=== PATIENT | male | born 1970 | race African-American/Black ===

== ENCOUNTER 2017-08-06 06:29 | Observation (INO) ==
[2017-08-06] MEDS ORDERED: ASPIRIN 325 MG TABLET PO STA (06:45)
--- NOTE | 2017-08-06 06:47 | Emergency Department Note ---
Arrival - Arrival Chief Complaint: Chest Pain Stated Complaint: chest pain,SOB,lightheaded and dizzy ED Nursing Triage Note: C/O Midsternal chest pain radiating down left arm. Onset yesterday morning upon waking. Describes pain as tightness in nature. Denies nausea/diaphoresis. Mode of Arrival: Ambulatory Limitations: No Limitations Source: Patient, RN Notes Reviewed Time Seen by Provider: 08/06/17 06:41 - History of Present Illness HPI Narrative: Patient is a 46-year-old black male with frequent, multiple, ED visits. The patient complains of chest tightness off and on for 2 days. He states that this is associated with shortness of breath. He denies diaphoresis. He denies nausea. Patient has no prior history of coronary artery disease. There is nothing that makes his pain better or worse. Onset (ago): day(s) (2) Consistency: intermittent Severity: mild Allergies/Adverse Reactions: Allergies Allergy/AdvReac Type Severity Reaction Status Date / Time trazodone Allergy Migraine Verified 11/21/16 23:49 amlodipine [From Norvasc] AdvReac Unknown/Unable Verified 11/21/16 23:49 to obtain clindamycin AdvReac Diarrhea Verified 11/21/16 23:49 Erythromycin Base AdvReac Diarrhea Verified 11/21/16 23:49 metoprolol AdvReac Migraine Verified 11/21/16 23:49 Milk Containing Products AdvReac Nausea Verified 11/21/16 23:49 sulfamethoxazole AdvReac Diarrhea Verified 11/21/16 23:49 [From Bactrim] trimethoprim [From Bactrim] AdvReac Diarrhea Verified 11/21/16 23:49 Home Medications: Home Medications Medication Instructions Recorded Confirmed Type Ranitidine Tab [Zantac Tab] 150 mg PO BID 06/15/15 08/06/17 History clonazePAM TAB [KlonoPIN] 0.25 mg PO BID@0800,1200 06/15/15 08/06/17 History Lisinopril 20 mg PO QAM 07/25/15 08/06/17 History Citalopram [CeleXA] 40 mg PO BEDTIME 11/15/15 08/06/17 History Fluticasone 50 Mcg Nasal [place] 2 spray BOTH NARES BEDTIME 03/25/17 08/06/17 History [Flonase Nasal [place]] Hydrocortisone (Anusol-Hc) Sup 25 mg RECTAL BID PRN #14 supp 03/25/17 08/06/17 Rx [ANUSOL HC SUPP (hydrocortisone)] Ondansetron Tab [Zofran Tab] 4 mg PO Q6H PRN 03/25/17 08/06/17 History Albuterol Sulfate [Proair HFA] 2 puff INH Q4H PRN 08/06/17 08/06/17 History Dicyclomine Cap/Tab [Bentyl 20 mg PO QID 08/06/17 08/06/17 History Cap/Tab] Fluticasone/Salmeterol 250-50 1 puff INH BID 08/06/17 08/06/17 History [Advair 250-50] Gabapentin 300 mg PO TID 08/06/17 08/06/17 History Lovastatin 10 mg PO BEDTIME 08/06/17 08/06/17 History Meclizine [Antivert] 25 mg PO BID PRN 08/06/17 08/06/17 History Sildenafil Citrate [Viagra] 100 mg PO DAILY PRN 08/06/17 08/06/17 History clonazePAM TAB [KlonoPIN] 0.5 mg PO BEDTIME 08/06/17 08/06/17 History Review of System - Review of System 12 point system: reviewed and no additional remarkable complaints except as stated - Review of System Constitutional: Absent: chills, diaphoresis, fever Respiratory: Present: as per HPI Cardiovascular: Present: as per HPI Medical,Surgical,& Family Hx - Medical History Cardio: History of: Hypertension Psychological: History of: Anxiety Disorders, Depression Neurology: History of: Migraine, Vertigo Endocrine: History of: Dyslipidemia No history of: Diabetes Mellitus (IDDM), Diabetes Mellitus (NIDDM) Respiratory: History of: Asthma Renal: No history of: Renal Failure, Renal Problems Gastrointestinal: History of: Ulcerative Colitis Musculoskeletal: History of: Back/Neck Problems (chronic back pain) - Surgical History HEENT Surgeries: Surgical HX of: Tonsilectomy & Adenoidectomy Abdominal Surgeries: Surgical HX of: Hernia Repair - Family History Family History: Reports;: Family Cancer (Prostate), Family Heart Disease, Family Hypertension, Family Psychiatric Problems - Social History Smoking Status: Former smoker Frequency of Alcohol Use: None Type of Drug Use: None Exam Vital Signs: Vital Signs Temperature 98.4 F 08/06/17 06:36 Pulse Rate 69 08/06/17 06:36 Respiratory Rate 18 08/06/17 06:49 Blood Pressure 158/70 08/06/17 06:36 O2 Sat by Pulse Oximetry 97 08/06/17 06:36 GENERAL: This is a well-nourished well-developed black male in no apparent distress. VITAL SIGNS: Reviewed HEENT: Head is atraumatic and normocephalic. Pupils are equal round react to light. Extraocular movements are intact. Oropharynx is benign with moist mucous membranes. NECK: Neck is soft and supple without tenderness. There are no masses. There is no lymphadenopathy. LUNGS: Lungs are clear to auscultation. Chest rises symmetrically. There is no chest wall tenderness. CV: Heart is regular rate and rhythm without murmurs rubs or gallops. ABDOMEN: Abdomen is soft, nontender to palpation. There are no abdominal abnormal masses palpated. There is no organomegaly. Bowel sounds are present and active. SKIN: Skin is warm and dry. No rash. EXTREMITIES: Patient has full range of motion without tenderness. There is no pedal edema. NEUROLOGIC: Awake alert and oriented 4 Cranial nerves II through XII are grossly intact. Motor is 5 over 5 in all extremities bilaterally. Deep tendon reflexes are 2+ and bilaterally equal. Course - Consultations Consultation #1: Discussed with cardiology. Patient will be seen in the emergency department by cardiology. Time: 09:30 Results - Labs CBC & BMP: 08/06/17 07:02 08/06/17 07:02 Lab Results: I have reviewed the patients labs Labs: Laboratory Tests 08/06/17 07:02 Troponin I < 0.015 - EKG EKG results: interpreted by ERMD - Impressions EKG: Normal sinus rhythm with a rate of 65, normal ST-T waves. Normal EKG normal axis. - Diagnostic Findings Procedure: Chest x-ray: image reviewed by me (No infiltrates, no pleural effusions, no cardiomegaly.) Disposition Clinical Impression: Chest pain Case discussed with: patient Condition: Stable
[2017-08-06] MEDS ORDERED: ASPIRIN 325 MG TABLET ONE (06:58)
--- NOTE | 2017-08-06 07:15 | XRay Report ---
XR chest 2V Indication: Chest pain Comparison: 29 July 2015 Findings: The heart and mediastinum are normal in size and configuration. The pulmonary vascularity is normal in caliber. No lung infiltrates, effusions, pneumothorax or other abnormality is demonstrated. Impression: No acute cardiopulmonary disease. PROCEDURE INTERPRETED AT [facility] DEPARTMENT OF RADIOLOGY Final Report Signed by: Dr. Uche Irving
[2017-08-06 07:16] LABS: Basophils % 0.2 % (0.0-0.8); Eosinophils # 0.1 10*3/uL (0.0-0.87); Eosinophils % 1.1 % (0.00-10.9); Hematocrit 42.1 VOL% (42.0-52.0); Hemoglobin 14.5 GM/DL (14.0-18.0); Immature Granulocytes % 0.3 %; Immature Granulocytes Absolute 0.02 #; Lymphocytes # 1.5 10*3/uL (1.4-4.0); Lymphocytes % 24.6 % (21.2-54.2); Mean Corpuscular HGB Conc 34.4 GM/DL (32-36); Mean Corpuscular Hemoglobin 32 PG (27-34); Mean Corpuscular Volume 93.6 FL (87-102); Monocytes # 0.4 10*3/uL (0.11-0.8); Monocytes % 6.4 % (1.7-12.7); Neutrophils # 4.2 10*3/uL (1.4-7.4); Neutrophils % 67.4 % (38.7-73.9); Platelet Count 225 T/CUMM (130-400); Red Cell Distribution Width 12.5 % (9.3-17.3); White Blood Count 6.3 T/CUMM (4-12)
[2017-08-06 07:22] LABS: PT Patient Result 10.7 SECS; Partial Thromboplastin Time 33.5 SECS (0-40)
[2017-08-06 07:32] LABS: Alanine Aminotransferase 39 U/L (16-61); Albumin 3.6 G/DL (3.4-5.0); Alkaline Phosphatase 99 U/L (45-117); Aspartate Amino Transferase 20 U/L (0-37); Bilirubin,Total < 0.39 MG/DL (0.2-1.0); Blood Urea Nitrogen 13 MG/DL (7-18); Calcium 7.8 MG/DL (8.5-10.1); Glucose 118 MG/DL (74-106); Osmolality,Calculated 275.7 MOS/KG (273-304); Potassium 4.5 MMOL/L (3.5-5.1); Sodium 138 MMOL/L (136-145); Total Protein 6.7 G/DL (6.4-8.3)
[2017-08-06 08:44] LABS: Barbiturates Screen,Urine Negative (Negative); Benzodiazepines Screen,Urine Negative (Negative); Cannabinoid Screen,Urine Negative (Negative); Opiate Screen,Urine Negative (Negative); Phencyclidine Screen,Urine Negative (Negative)
--- NOTE | 2017-08-06 09:42 | Order Completion Report ---
See report scanned to EMR
--- NOTE | 2017-08-06 10:21 | Cardiology History & Physical ---
Assessment and Plan - Time spent with patient Time spent with patient: Greater than 30 minutes (1) Hypertension Status: Chronic Assessment and plan: SEE PLAN OF CARE LISTED BELOW Current Visit: Yes (2) Dyslipidemia Status: Chronic Assessment and plan: SEE PLAN OF CARE LISTED BELOW Current Visit: Yes (3) Chest pain Status: Acute Assessment and plan: SEE PLAN OF CARE LISTED BELOW Current Visit: No History of Present Illness Chief complaint: chest pain History of present illness: NEUROLOGICAL PHYSIOTHERAPIST: DR. TRIPLETT (NEW) Patient is being seen in the ER. Mr. Sanchez, 46BM, with risk factors significant for: Hypertension, dyslipidemia. Presented to the emergency department today with complaints of chest pain which woke him from sleep this morning around 0400. This began in the center of his chest and radiated up toward the neck area, described as "tight feeling". It was not associated with shortness of breath, lightheadedness, dizziness or palpitations. This lasted intermittently for approximately 30 minutes and he felt as if he should be evaluated in the ED. Rates the discomfort as a 7 on a scale of 1-10. Currently chest pain-free. Is normally very active and can perform his activities without chest pain, heaviness, tightness or shortness of breath. He can identify no aggravating nor any alleviating factors. No prior history of known CAD. Cardiac biomarkers negative, EKG is stable. Patient reports he had a stress test approximately 5-7 years ago here at [facility]. I cannot find record of this. He states he received favorable results. I have discussed with Dr. Triplett and patient will undergo Cardiolite stress testing this morning. Hopefully, patient may be eligible for discharge this afternoon if patient received favorable results from stress testing. IMPRESSION/PLAN: 1. CHEST PAIN - NPO for Cardiolite stress testing today. Symptoms are atypical of angina but has limited resources and cannot afford to undergo outpatient stress testing. For this reason, he will undergo stress testing here this morning. 2. HYPERTENSION - usually well controlled per patient 3. DYSLIPIDEMIA - Routinely takes lipid-lowering agent. This is followed by his primary care provider a [facility]. Home Medications Medication Instructions Recorded Confirmed Type Ranitidine Tab [Zantac Tab] 150 mg PO BID 06/15/15 08/06/17 History clonazePAM TAB [KlonoPIN] 0.25 mg PO BID@0800,1200 06/15/15 08/06/17 History Lisinopril 20 mg PO QAM 07/25/15 08/06/17 History Citalopram [CeleXA] 40 mg PO BEDTIME 11/15/15 08/06/17 History Fluticasone 50 Mcg Nasal [place] 2 spray BOTH NARES BEDTIME 03/25/17 08/06/17 History [Flonase Nasal [place]] Hydrocortisone (Anusol-Hc) Sup 25 mg RECTAL BID PRN #14 supp 03/25/17 08/06/17 Rx [ANUSOL HC SUPP (hydrocortisone)] Ondansetron Tab [Zofran Tab] 4 mg PO Q6H PRN 03/25/17 08/06/17 History Albuterol Sulfate [Proair HFA] 2 puff INH Q4H PRN 08/06/17 08/06/17 History Dicyclomine Cap/Tab [Bentyl 20 mg PO QID 08/06/17 08/06/17 History Cap/Tab] Fluticasone/Salmeterol 250-50 1 puff INH BID 08/06/17 08/06/17 History [Advair 250-50] Gabapentin 300 mg PO TID 08/06/17 08/06/17 History Lovastatin 10 mg PO BEDTIME 08/06/17 08/06/17 History Meclizine [Antivert] 25 mg PO BID PRN 08/06/17 08/06/17 History Sildenafil Citrate [Viagra] 100 mg PO DAILY PRN 08/06/17 08/06/17 History clonazePAM TAB [KlonoPIN] 0.5 mg PO BEDTIME 08/06/17 08/06/17 History Allergies Allergy/AdvReac Type Severity Reaction Status Date / Time trazodone Allergy Migraine Verified 11/21/16 23:49 amlodipine [From Norvasc] AdvReac Unknown/Unable Verified 11/21/16 23:49 to obtain clindamycin AdvReac Diarrhea Verified 11/21/16 23:49 Erythromycin Base AdvReac Diarrhea Verified 11/21/16 23:49 metoprolol AdvReac Migraine Verified 11/21/16 23:49 Milk Containing Products AdvReac Nausea Verified 11/21/16 23:49 sulfamethoxazole AdvReac Diarrhea Verified 11/21/16 23:49 [From Bactrim] trimethoprim [From Bactrim] AdvReac Diarrhea Verified 11/21/16 23:49 Review of systems: REVIEW OF SYSTEMS: - Constitutional Constitutional: Present: Fatigue. Absent: syncope, anorexia, night sweats - EENT Eyes: Absent: blurry vision, loss of vision, diplopia Ears: Absent: decreased hearing, ear pain, ear discharge - Cardiovascular Cardiovascular: Present: chest pain at rest. See HPI. Denies dyspnea on exertion, edema, palpitations. Absent: chest pain with deep breath, claudication. - Respiratory Respiratory: Denies: EDWARD, cough. Absent: wheezing, hemoptysis, change in phlegm color - Gastrointestinal Gastrointestinal: Present: Intermittent constipation versus diarrhea. History of colitis. Absent: abdominal pain, hematemesis, hematochezia, melena, change in bowel habits, nausea - Genitourinary Genitourinary: Absent: difficulty urinating, dysuria, urinary hesitancy, flank pain - Musculoskeletal Musculoskeletal: Present: back pain Absent: joint swelling, muscle cramps, muscle weakness - Neurological Neurological: Present: normal gait without frequent falls. Absent: dizziness, hemiparesis - Psychiatric Psychiatric: Absent: anxiety, depression, difficulty concentrating - Endocrine Endocrine: Present: fatigue. Absent: cold intolerance, heat intolerance, polyuria, polyphagia, polydipsia - Hematologic/Lymphatic Hematologic/Lymphatic: Present: easy bruising. Absent: easy bleeding -Integumentary Integumentary: Absent: lesions, rashes, skin breakdown Medical,Surgical,& Family Hx - Medical History Cardio: History of: Hypertension Psychological: History of: Anxiety Disorders, Depression Neurology: History of: Migraine, Vertigo Endocrine: History of: Dyslipidemia No history of: Diabetes Mellitus (IDDM), Diabetes Mellitus (NIDDM) Respiratory: History of: Asthma Renal: No history of: Renal Failure, Renal Problems Gastrointestinal: History of: Ulcerative Colitis Musculoskeletal: History of: Back/Neck Problems (chronic back pain) - Surgical History HEENT Surgeries: Surgical HX of: Tonsilectomy & Adenoidectomy Abdominal Surgeries: Surgical HX of: Hernia Repair - Family History Family History: Reports;: Family Cancer (Prostate), Family Heart Disease, Family Hypertension, Family Psychiatric Problems - Social History Smoking Status: Former smoker Have you smoked in the last 12 months: No Frequency of Alcohol Use: None Type of Drug Use: None Marital Status: Single Lives With:: Alone Functional capacity: independent ambulation Cardiology Physical Exam - Constitutional Vitals: Vital Signs Temp Pulse Resp BP Pulse Ox 98.4 F 69 18 158/70 97 08/06/17 06:36 08/06/17 06:36 08/06/17 06:49 08/06/17 06:36 08/06/17 06:36 Intake and Output 08/05/17 08/06/17 08/06/17 23:59 07:59 15:59 Other: Weight 117.934 kg Patient Weight 08/06/17 23:59 Weight 117.934 kg Exam: General: [Appears well with no apparent distress.] [Pleasant and cooperative. ] [Appears comfortable.] HEENT: [PERRL, normocephalic, atraumatic. Mucous membranes moist. No jaundice noted. Conjunctiva moist and clear, sclerae anicteric] Neck: No JVD/HJR, no thyromegaly or lymphadenopathy noted. No carotid bruit appreciated Cardiac: [Regular rate and rhythm.] [No murmur rub or gallop.] Lungs: [Clear to auscultation without accessory muscle use to assist the respiratory pattern.] Not requiring oxygen Abdomen: Soft, bowel sounds normoactive. Nontender and nondistended. No abdominal bruit or thrill noted. No masses noted. Musculoskeletal: No fluid collection. Decreased range of motion is noted. Extremities: No clubbing, cyanosis noted. [ No edema noted.] Upper extremity pulses 2+. Lower extremity pulses 2+. Capillary refill less than 3 seconds. Skin: No unusual lesions or rashes. No skin breakdown appreciated. Neuro: Awake, alert and oriented 3. Moves all extremities well without hemiparesis or paralysis. No essential tremor is appreciated. Result/EKG - Labs CBC & BMP: 08/06/17 07:02 08/06/17 07:02 Lab Results: I have reviewed the past 24 hour labs Labs: Laboratory Results - last 24 hr 08/06/17 08/06/17 08/06/17 07:02 07:02 07:02 WBC 6.3 RBC 4.50 Hgb 14.5 Hct 42.1 MCV 93.6 MCH 32 MCHC 34.4 RDW 12.5 Plt Count 225 MPV 11.0 Neut % (Auto) 67.4 Lymph % (Auto) 24.6 Dewitt % (Auto) 6.4 Eos % (Auto) 1.1 Baso % (Auto) 0.2 Neut # (Auto) 4.2 Lymph # (Auto) 1.5 Dewitt # (Auto) 0.4 Eos # (Auto) 0.1 Baso # (Auto) 0.0 Immature Gran % 0.3 Nucleated RBC % 0.0 Immature Gran # 0.02 Nucleated RBCs # 0.00 Immature Plt Fraction 0.0 INR 1.0 PT Patient/Control Mix 10.7 Circ Anticoag PTT 33.5 Sodium 138 Potassium 4.5 Chloride 108 H Carbon Dioxide 27 Anion Gap 7.5 BUN 13 Creatinine 1.00 GFR Calculation 152 BUN/Creatinine Ratio 13.00 Glucose 118 H Calculated Osmolality 275.7 Calcium 7.8 L Total Bilirubin < 0.39 AST 20 ALT 39 Alkaline Phosphatase 99 Troponin I Total Protein 6.7 Albumin 3.6 Globulin 3.1 Albumin/Globulin Ratio 1.1 Urine Opiates Screen Ur Barbiturates Screen Ur Phencyclidine Scrn U Amphetamine/Methamph U Benzodiazepines Scrn U Cocaine Metab Screen U Cannabinoids Screen 08/06/17 08/06/17 07:02 08:08 WBC RBC Hgb Hct MCV MCH MCHC RDW Plt Count MPV Neut % (Auto) Lymph % (Auto) Dewitt % (Auto) Eos % (Auto) Baso % (Auto) Neut # (Auto) Lymph # (Auto) Dewitt # (Auto) Eos # (Auto) Baso # (Auto) Immature Gran % Nucleated RBC % Immature Gran # Nucleated RBCs # Immature Plt Fraction INR PT Patient/Control Mix Circ Anticoag PTT Sodium Potassium Chloride Carbon Dioxide Anion Gap BUN Creatinine GFR Calculation BUN/Creatinine Ratio Glucose Calculated Osmolality Calcium Total Bilirubin AST ALT Alkaline Phosphatase Troponin I < 0.015 Total Protein Albumin Globulin Albumin/Globulin Ratio Urine Opiates Screen Negative Ur Barbiturates Screen Negative Ur Phencyclidine Scrn Negative U Amphetamine/Methamph Negative U Benzodiazepines Scrn Negative U Cocaine Metab Screen Negative U Cannabinoids Screen Negative - Diagnostic Findings Procedure: Chest x-ray: report reviewed by me - EKG EKG results: interpreted by me EKG shows: sinus rhythm
[2017-08-06 10:43] LABS: Risk Ratio 7.93; VLDL CHOLESTEROL 97.2 MG/DL
[2017-08-06] MEDS ORDERED: INFLUENZA VIRUS VACCINE 0.5 ML SYRINGE IM ONE (12:13)
--- NOTE | 2017-08-06 12:45 | Order Completion Report ---
See report scanned to EMR
--- NOTE | 2017-08-06 13:56 | Event Note ---
Patient underwent Cardiolite stress test without difficulty. Achieved target heart rate easily. No chest pain, heaviness or tightness noted with procedure. No arrhythmia noted. No significant EKG or ST changes noted. Blood pressure responded appropriately. Exercise tolerance fair. Patient is now being transferred to nuclear medicine for completion of final nuclear scan. Dr. Triplett to read, interpreted and advise
[2017-08-06] MEDS ORDERED: POTASSIUM CHLORIDE RIDER 10 MEQ in PREMIX 1 EACH IV PRN (15:31)
[2017-08-06] MEDS ORDERED: MAGNESIUM SULF RIDER 2 GM in PREMIX 1 EACH IV PRN (15:31)
[2017-08-06] MEDS ORDERED: diphenhydrAMINE CAP 25 MG CAPSULE PO ONE (15:31)
[2017-08-06] MEDS ORDERED: DIAZEPAM 5 MG TABLET PO ONE (15:31)
[2017-08-06] MEDS ORDERED: MECLIZINE 25 MG TABLET PO PRN (15:32)
[2017-08-06] MEDS ORDERED: ONDANSETRON 4 MG TABLET PO PRN (15:32)
[2017-08-06] MEDS ORDERED: ENOXAPARIN 120 MG/0.8 ML SYRINGE SUBCUT ONE (15:35)
[2017-08-06] MEDS ORDERED: ALBUTEROL 2.5 MG/3 ML NEB RESP TX PRN (17:15)
[2017-08-06 17:23] LABS: PT Patient Result 10.8 SECS
[2017-08-06] MEDS: DICYCLOMINE 20 MG TABLET PO SCH ×2 (18:05→22:00)
[2017-08-06] MEDS ORDERED: LOVASTATIN 20 MG TABLET PO SCH (21:00)
[2017-08-06] MEDS ORDERED: FLUTICASONE 50 MCG NASAL SPRAY 16 GM BOTTLE BOTH NARES SCH (21:00)
[2017-08-06] MEDS ORDERED: CITALOPRAM 40 MG TABLET PO SCH (21:00)
[2017-08-06] MEDS ORDERED: clonazePAM 0.5 MG TABLET PO SCH (21:00)
[2017-08-06] MEDS: FLUTICASONE/SALMETEROL 250-50 DISKUS 14 DOSE INH SCH (21:58)
[2017-08-06] MEDS: GABAPENTIN 300 MG CAPSULE PO SCH (21:59)
[2017-08-07 06:17] LABS: Basophils % 0.2 % (0.0-0.8); Eosinophils # 0.1 10*3/uL (0.0-0.87); Eosinophils % 0.9 % (0.00-10.9); Hematocrit 41.7 VOL% (42.0-52.0); Hemoglobin 14.5 GM/DL (14.0-18.0); Immature Granulocytes % 0.2 %; Immature Granulocytes Absolute 0.01 #; Lymphocytes # 1.5 10*3/uL (1.4-4.0); Lymphocytes % 27.1 % (21.2-54.2); Mean Corpuscular HGB Conc 34.8 GM/DL (32-36); Mean Corpuscular Hemoglobin 32 PG (27-34); Mean Corpuscular Volume 91.6 FL (87-102); Monocytes # 0.3 10*3/uL (0.11-0.8); Neutrophils # 3.7 10*3/uL (1.4-7.4); Neutrophils % 65.6 % (38.7-73.9); Platelet Count 202 T/CUMM (130-400); Red Blood Count 4.55 MC/CUMM (3.8-5.5); Red Cell Distribution Width 12.1 % (9.3-17.3); White Blood Count 5.7 T/CUMM (4-12)
[2017-08-07 06:55] LABS: Calcium 8.6 MG/DL (8.5-10.1); Magnesium 2.2 MG/DL (1.8-2.4); Osmolality,Calculated 276.5 MOS/KG (273-304); Potassium 4.1 MMOL/L (3.5-5.1)
[2017-08-07] MEDS ORDERED: LIDOCAINE 1% 20 ML VIAL ONE (07:21)
[2017-08-07] MEDS ORDERED: HEPARIN/NACL 0.9% 2 UNITS/ML 1,000 ML IV ONE (07:21)
[2017-08-07] MEDS ORDERED: diphenhydrAMINE CAP 25 MG CAPSULE ONE (07:49)
[2017-08-07] MEDS ORDERED: DIAZEPAM 5 MG TABLET ONE (07:49)
[2017-08-07] MEDS ORDERED: fentaNYL 100 MCG/2 ML VIAL ONE ×2 (08:40→08:58)
[2017-08-07] MEDS ORDERED: MIDAZOLAM 2 MG/2 ML VIAL ONE ×3 (08:40→08:58)
--- NOTE | 2017-08-07 08:51 | History and Physical Update ---
Sedation H&P Update - History and Physical H&P was reviewed, the patient examined and there: are no changes in the patients condition since last H&P was completed. - Dictation Physical: refer to H&P completed by admitting physician - Physical Exam Mental Status: alert and oriented Heart: regular rate and rhythm Lung: clear to auscultation Abdomen: within normal limits Vitals: within normal limits - Sedation Plan for Sedation: moderate Patient Consent: Procedure disscussed with patient and patinet has consented., Risks and benefits were discussed with patient,including infection,, bleeding, injury to surrounding structures, seizure, temporary nerve, Patient understands and accepts potential risks/benefits and agrees to, proceed. ASA Class: III Airway Assessment: Class I: Soft palate, uvula, fauces, pillars visible
--- NOTE | 2017-08-07 08:51 | Event Note ---
Dr. Triplett asked me to evaluate the patient for cardiac catheterization. He has had ongoing chest discomfort, limited functional status and an equivocally abnormal stress test. I discussed the role, risks and benefits of cardiac catheterization with the patient he is agreeable to proceeding. He does not have a history of GI bleeding nor does he have a contraindication to dual antiplatelet therapy. He denies IV contrast allergy. Physical exam is unremarkable. Laboratory data is within normal limits for
[2017-08-07] MEDS ORDERED: ASPIRIN EC 81 MG TABLET PO SCH (09:00)
[2017-08-07] MEDS ORDERED: LISINOPRIL 20 MG TABLET PO SCH (09:00)
[2017-08-07] MEDS ORDERED: ONDANSETRON 4 MG/2 ML VIAL IV PRN (09:18)
[2017-08-07] MEDS ORDERED: ACETAMINOPHEN/CODEINE 300-30 MG TABLET PO PRN (09:18)
[2017-08-07] MEDS ORDERED: MORPHINE 2 MG/1 ML SYRINGE IV PRN (09:18)
[2017-08-07] MEDS ORDERED: ACETAMINOPHEN 325 MG TABLET PO PRN (09:18)
[2017-08-07] MEDS ORDERED: SODIUM CHLORIDE 0.45% 1,000 ML IV SCH (09:30)
[2017-08-07] MEDS: DICYCLOMINE 20 MG TABLET PO SCH ×3 (10:42→17:24)
[2017-08-07] MEDS: clonazePAM 0.5 MG TABLET PO SCH ×2 (10:42→14:27)
[2017-08-07] MEDS: GABAPENTIN 300 MG CAPSULE PO SCH ×2 (10:42→17:24)
[2017-08-07] MEDS: FLUTICASONE/SALMETEROL 250-50 DISKUS 14 DOSE INH SCH (10:43)
--- NOTE | 2017-08-07 15:49 | Discharge Summary ---
Hospital Course - Hospital Course Hospital Course: WIRER: DR. TRIPLETT (NEW) SUMMARY: Mr. Sanchez, 46BM, with risk factors significant for: hypertension, dyslipidemia. Admitted August 06, 2017 from the emergency department with complaints of chest pain. He underwent cardiac catheterization August 07, 2017 which revealed NO CORONARY ARTERY DISEASE. He tolerated the procedure well without complications and was returned to the telemetry unit stable condition. Chest pain is deemed noncardiac in nature. Blood pressures well controlled during the hospital stay. He has a history of dyslipidemia and he has been encouraged to continue to take his lipid-lowering agent. He will not require an aspirin as he is not diabetic nor does he have coronary artery disease. Patient has been ambulating without difficulty. Right groin is soft, free of hematoma or bruit. He will be given a 2-3 week follow-up with Dr. Glass to evaluate his right groin access site. Otherwise, he will not need to follow with cardiology. Patient does not have insurance and tells me this is been a real problem for him getting thorough medical care. He tells me he goes to the "[facility]" but is often rerouted to the emergency department for his complaints. Reviewing the medical records, patient is here monthly for various complaints. Fortunately, now we know he has no cardiac indications for admission. Patient will be encouraged to follow-up with his primary care provider for further management. He has been instructed to take a PPI daily without fail - Time spent with patient Time with patient DS: Greater than 30 minutes Diagnosis - Discharge Diagnosis (1) Hypertension Status: Chronic (2) Dyslipidemia Status: Chronic (3) Chest pain Status: Resolved Specialty Discharge - Follow Up or Referrals Follow up with: Omega Triplett MD [Physician] - (2-3 weeks for groin check post cath) Discharge Plan - Discharge Data Disposition: Disch To Home/Self Care Condition at Discharge: Stable Discharge Diet: heart healthy Activity: other (Post cath expectations) Hygiene: other (Post cath expectations) Weight Bearing at Discharge: other (Post cath expectations) Driving: other (Post cath expectations) Contact your physician if you experience:: fever over 101, Difficulty voiding, Redness or swelling, Nausea/Vomiting, Shortness of breath, Bleeding, pain uncontrolled by pain medications - Discharge Medications Continue clonazePAM TAB [KlonoPIN] 0.25 mg PO BID@0800,1200 Ranitidine Tab [Zantac Tab] 150 mg PO BID Lisinopril 20 mg PO QAM Citalopram [CeleXA] 40 mg PO BEDTIME Fluticasone 50 Mcg Nasal Alpha [Flonase Nasal Alpha] 2 spray BOTH NARES BEDTIME Ondansetron Tab [Zofran Tab] 4 mg PO Q6H PRN PRN Reason: Nausea/Vomiting Hydrocortisone (Anusol-Hc) Sup [Anusol HC Supp] 25 mg RECTAL BID PRN #14 supp PRN Reason: Hemorrhoids Albuterol Sulfate [Proair HFA] 2 puff INH Q4H PRN PRN Reason: Shortness Of Breath/Wheezing Sildenafil Citrate [Viagra] 100 mg PO DAILY PRN PRN Reason: Erectile Dysfunction Fluticasone/Salmeterol 250-50 [Advair 250-50] 1 puff INH BID Dicyclomine Cap/Tab [Bentyl Cap/Tab] 20 mg PO QID Gabapentin 300 mg PO TID Meclizine [Antivert] 25 mg PO BID PRN PRN Reason: Vertigo Lovastatin 10 mg PO BEDTIME clonazePAM TAB [KlonoPIN] 0.5 mg PO BEDTIME - Follow Up or Referral - Forms/Instructions Exam - Constitutional Vitals: Period Temp Pulse Resp BP Sys/Pereyra Pulse Ox Last 24 Hr 97.8 F-98.7 F 56-81 16-20 105-140/42-101 95-100 Exam: General: [Appears well with no apparent distress.] [Pleasant and cooperative. ] [Appears comfortable.] HEENT: [PERRL, normocephalic, atraumatic. Mucous membranes moist. No jaundice noted. Conjunctiva moist and clear, sclerae anicteric] Neck: No JVD/HJR, no thyromegaly or lymphadenopathy noted. No carotid bruit appreciated Cardiac: [Regular rate and rhythm.] [No murmur rub or gallop.] Lungs: [Clear to auscultation without accessory muscle use to assist the respiratory pattern.] Not requiring oxygen Abdomen: Soft, bowel sounds normoactive. Nontender and nondistended. No abdominal bruit or thrill noted. No masses noted. Musculoskeletal: No fluid collection. Decreased range of motion is noted. Extremities: Right groin soft, free of hematoma or bruit. No clubbing, cyanosis noted. [ No edema noted.] Upper extremity pulses 2+. Lower extremity pulses 2+. Capillary refill less than 3 seconds. Skin: No unusual lesions or rashes. No skin breakdown appreciated. Neuro: Awake, alert and oriented 3. Moves all extremities well without hemiparesis or paralysis. No essential tremor is appreciated. Discharge Results Procedures and tests throughout hospitalization: Pending Orders 08/07/17 06:41 CL heart Routine Labs on day of discharge: Labs from last 24 hours 08/07/17 08/07/17 08/06/17 05:41 05:41 16:49 WBC 5.7 RBC 4.55 Hgb 14.5 Hct 41.7 L MCV 91.6 MCH 32 MCHC 34.8 RDW 12.1 Plt Count 202 MPV 11.0 Neut % (Auto) 65.6 Lymph % (Auto) 27.1 [place] % (Auto) 6.0 Eos % (Auto) 0.9 Baso % (Auto) 0.2 Neut # (Auto) 3.7 Lymph # (Auto) 1.5 [place] # (Auto) 0.3 Eos # (Auto) 0.1 Baso # (Auto) 0.0 Immature Gran % 0.2 Nucleated RBC % 0.0 Immature Gran # 0.01 Nucleated RBCs # 0.00 Immature Plt Fraction 0.0 INR 1.0 PT Patient/Control Mix 10.8 Sodium 139 Potassium 4.1 Chloride 106 Carbon Dioxide 27 Anion Gap 10.1 BUN 13 Creatinine 1.00 GFR Calculation 155 BUN/Creatinine Ratio 13.00 Glucose 104 Calculated Osmolality 276.5 Calcium 8.6 Magnesium 2.2 Troponin I 08/06/17 16:49 WBC RBC Hgb Hct MCV MCH MCHC RDW Plt Count MPV Neut % (Auto) Lymph % (Auto) [place] % (Auto) Eos % (Auto) Baso % (Auto) Neut # (Auto) Lymph # (Auto) [place] # (Auto) Eos # (Auto) Baso # (Auto) Immature Gran % Nucleated RBC % Immature Gran # Nucleated RBCs # Immature Plt Fraction INR PT Patient/Control Mix Sodium Potassium Chloride Carbon Dioxide Anion Gap BUN Creatinine GFR Calculation BUN/Creatinine Ratio Glucose Calculated Osmolality Calcium Magnesium Troponin I < 0.015 - Imaging and Cardiology Cardiology Procedure: report reviewed by Procedure: Chest x-ray: report reviewed by DS: Provider Date of admission: 08/06/17 10:19 Primary care physician: . No PCP Attending physician on admission: Omega Triplett MD Discharging clinician: Alanna Treadwell NP Expected date of discharge: 08/07/17
[2017-08-07 16:54] VITALS: BP 107/70
--- NOTE | 2017-08-08 21:21 | Order Completion Report ---
See report scanned to EMR
== END 2017-08-07 17:25 | disposition home or self-care (01) ==
LOC: N.EDINP 06:29 → N.ED 06:29 → N.TELES 11:30
PROVIDERS: ADMIT Internal Medicine Clinical Cardiac Electrophysiology; ATTEND Internal Medicine Clinical Cardiac Electrophysiology
PROC: CLCCHCL (ICD-10-PCS; 2017-08-07 09:15)

== ENCOUNTER 2019-07-21 08:28 | Observation (INO) ==
[2019-07-21] MEDS ORDERED: ONDANSETRON 4 MG/2 ML VIAL IV STA (09:22)
[2019-07-21] MEDS ORDERED: MORPHINE 4 MG/1 ML VIAL IV STA (09:22)
[2019-07-21] MEDS ORDERED: ASPIRIN 325 MG TABLET PO STA (09:22)
[2019-07-21 10:00] LABS: Basophils % 0.4 % (0.0-0.8); Eosinophils # 0.1 10*3/uL (0.0-0.87); Eosinophils % 0.9 % (0.00-10.9); Hematocrit 44.2 VOL% (42.0-52.0); Hemoglobin 14.9 GM/DL (14.0-18.0); Immature Granulocytes % 0.2 %; Immature Granulocytes Absolute 0.01 #; Lymphocytes # 1.4 10*3/uL (1.4-4.0); Lymphocytes % 25.8 % (21.2-54.2); Mean Corpuscular HGB Conc 33.7 GM/DL (32-36); Mean Corpuscular Volume 93.8 FL (87-102); Mean Platelet Volume 10.5 FL (9.6-12.0); Monocytes % 7.7 % (1.7-12.7); Platelet Count 201 T/CUMM (130-400); Red Blood Count 4.71 MC/CUMM (3.8-5.5); Red Cell Distribution Width 12.8 % (9.3-17.3); White Blood Count 5.5 T/CUMM (4-12)
[2019-07-21 10:09] LABS: PT Patient Result 10.9 SECS (9.6-12.2); Partial Thromboplastin Time 30.7 SECS (20.8-36.0)
[2019-07-21 10:12] LABS: Barbiturates Screen,Urine Negative (Negative); Benzodiazepines Screen,Urine Negative (Negative); Cannabinoid Screen,Urine Negative (Negative); Opiate Screen,Urine Negative (Negative); Phencyclidine Screen,Urine Negative (Negative)
[2019-07-21 10:29] LABS: Albumin 3.9 G/DL (3.4-5.0); Bilirubin,Total 0.7 MG/DL (0.2-1.0); Calcium 8.7 MG/DL (8.5-10.1); Osmolality,Calculated 276.5 MOS/KG (273-304); Total Protein 6.9 G/DL (6.4-8.3)
[2019-07-21] MEDS ORDERED: MECLIZINE 25 MG TABLET PO PRN (12:31)
[2019-07-21] MEDS ORDERED: NON-FORMULARY MEDICATION (Albuterol Sulfate [Proair Hfa] 2 PUFF) INH PRN (12:31)
[2019-07-21] MEDS ORDERED: FLUTICASONE 50 MCG NASAL SPRAY 16 GM BOTTLE BOTH NARES PRN (12:31)
[2019-07-21] MEDS ORDERED: MAGNESIUM SULF RIDER 4 GM in PREMIX 1 EACH IV PRN (12:38)
[2019-07-21] MEDS ORDERED: POTASSIUM CHLORIDE 20 MEQ TABLET PO PRN ×2 (12:38)
[2019-07-21] MEDS ORDERED: BISACODYL 5 MG TABLET PO PRN (12:38)
[2019-07-21] MEDS ORDERED: ACETAMINOPHEN 325 MG TABLET PO PRN (12:38)
[2019-07-21] MEDS ORDERED: MAGNESIUM SULF RIDER 2 GM in PREMIX 1 EACH IV PRN (12:38)
[2019-07-21] MEDS ORDERED: NITROGLYCERIN SL 0.4 MG TABLET SL PRN (12:38)
[2019-07-21] MEDS ORDERED: ONDANSETRON 4 MG/2 ML VIAL IV PRN (12:38)
[2019-07-21] MEDS ORDERED: MORPHINE 4 MG/1 ML VIAL IV PRN (12:38)
[2019-07-21] MEDS ORDERED: ZALEPLON 5 MG CAPSULE PO PRN (12:38)
[2019-07-21] MEDS ORDERED: MAGNESIUM HYDROXIDE SUSP 30 ML UDCUP PO PRN (12:38)
[2019-07-21] MEDS ORDERED: ALBUTEROL/IPRATROPIUM 3 ML NEB RESP TX PRN (12:43)
[2019-07-21] MEDS: GABAPENTIN 600 MG TABLET PO SCH ×2 (14:30→20:46)
[2019-07-21] MEDS: DICYCLOMINE 20 MG TABLET PO SCH ×3 (14:30→20:44)
[2019-07-21] MEDS: BACLOFEN 20 MG TABLET PO SCH ×3 (14:31→20:46)
[2019-07-21] MEDS: HEPARIN 5,000 UNIT/1 ML VIAL SUBCUT SCH (18:08)
[2019-07-21] MEDS: FLUTICASONE/SALMETEROL 250-50 DISKUS 14 DOSE INH SCH (20:49)
[2019-07-21] MEDS ORDERED: FAMOTIDINE 20 MG TABLET PO SCH ×2 (21:00)
[2019-07-21] MEDS ORDERED: SIMVASTATIN 10 MG TABLET PO SCH (21:00)
[2019-07-21] MEDS ORDERED: CITALOPRAM 40 MG TABLET PO SCH (21:00)
[2019-07-21] MEDS ORDERED: clonazePAM 0.5 MG TABLET PO ONE (21:15)
[2019-07-22] MEDS: HEPARIN 5,000 UNIT/1 ML VIAL SUBCUT SCH ×2 (01:42→08:54)
[2019-07-22 06:30] LABS: Risk Ratio 4.64; VLDL CHOLESTEROL 16.4 MG/DL
[2019-07-22 08:10] VITALS: BP 127/84
[2019-07-22] MEDS: FLUTICASONE/SALMETEROL 250-50 DISKUS 14 DOSE INH SCH (08:50)
[2019-07-22] MEDS: GABAPENTIN 600 MG TABLET PO SCH (08:51)
[2019-07-22] MEDS: DICYCLOMINE 20 MG TABLET PO SCH (08:51)
[2019-07-22] MEDS ORDERED: ASPIRIN EC 81 MG TABLET PO SCH (09:00)
[2019-07-22] MEDS ORDERED: LISINOPRIL 20 MG TABLET PO SCH (09:00)
[2019-07-22] MEDS ORDERED: INFLUENZA VIRUS VACCINE 0.5 ML SYRINGE IM ONE (09:30)
[2019-07-22] MEDS: BACLOFEN 20 MG TABLET PO SCH (10:25)
== END 2019-07-22 10:20 | disposition home or self-care (01) ==
LOC: N.EDINP 08:28 → N.ED 08:28 → SUATTDRO 11:45 → N.2E 12:30
PROVIDERS: ADMIT Internal Medicine